=== PATIENT | male | born 1960 | race American Indian/Alaskan Native ===

== ENCOUNTER 2020-10-14 14:25 | Emergency (ER) | payer SELFPAY ==
--- NOTE | 2020-10-14 17:12 | Emergency Department Report ---
ED General Adult HPI - General Chief complaint: Back Pain/Injury Stated complaint: BACK PAIN Time Seen by Provider: 10/14/20 17:06 Source: patient Mode of arrival: Ambulatory Limitations: No Limitations - History of Present Illness Initial comments: 60 y/o male pt w/ hx of lumbar disc herniation presents to ED w/ complaints of nontraumatic nonradiating lower back pain starting 4 days ago. Patient cannot recall any precipitating activity or injury prior to the onset of his pain. Patient states he was diagnosed with a lumbar disc herniation by his iropractor several years ago. He has been wearing a back brace and taking Motrin for pain with limited relief. Pain is worse with standing and movement. Patient does not take steroids. No illicit drug use. Denies fever, chills, neck pain, bladder/bowel incontinence, urinary tension, paresthesias, numbness, weakness, saddle anesthesia. Denies all other complaints at this time. - Related Data Previous Rx's Medication Instructions Recorded Last Taken Type Lidocaine [Lidoderm] 1 each TP BID #20 adh..patch 10/14/20 Unknown Rx Naproxen 500 mg PO BID #20 tablet 10/14/20 Unknown Rx Allergies Allergy/AdvReac Type Severity Reaction Status Date / Time No Known Allergies Allergy Unverified 10/14/20 16:44 ED Review of Systems ROS: Stated complaint: BACK PAIN Other details as noted in HPI Other: CARDIOVASCULAR: Negative for chest pain. PULMONARY: Negative for dyspnea. GASTROINTESTINAL: Negative for abdominal pain. MUSCULOSKELETAL: Positive for back pain. NEUROLOGICAL: Negative for headache. INTEGUMENTARY: Negative for ecchymosis. ED Past Medical Hx - Past Medical History Previous Medical History?: No - Surgical History Past Surgical History?: No - Social History Smoking Status: Current Every Day Smoker Substance Use Type: Alcohol - Medications Home Medications: Home Medications Medication Instructions Recorded Confirmed Last Taken Type Lidocaine [Lidoderm] 1 each TP BID #20 adh..patch 10/14/20 Unknown Rx Naproxen 500 mg PO BID #20 tablet 10/14/20 Unknown Rx ED Physical Exam - General Limitations: No Limitations - Other Other exam information: General: Awake and alert. No acute distress. Head: Atraumatic, normocephalic. Eyes: EOMI. Pupils are equal and round. Normal sclera and conjunctiva. ENT: Oral mucosa is moist. Normal pharyngeal exam. Neck: Supple. No lymphadenopathy. Pulmonary: No respiratory distress. Clear to auscultation bilaterally. Cardiac: Regular rate and rhythm. Pulses are palpable and equal bilaterally. No lower extremity cyanosis or edema. Skin: Warm and dry. No rashes. Abdomen: Soft, non-tender, non-protuberant. No guarding, rigidity, or rebound. Bowel sounds are normal. No organomegaly or masses noted. Back: Patient reports diffuse midline and bilateral paraspinal lumbar back pain without reproducible tenderness. No muscle spasm. No step-offs. No saddle anesthesia. Ambulatory without assistance. Straight leg raise is negative. Extremities: Symmetrical. Full range of motion intact. Neurological: Alert and oriented, appropriately interactive, no focal deficits. Strength and sensation intact throughout. Psych: Cooperative. Appropriate mood and affect. Speech is evenly metered. Thoughts are logically construed. ED Course Vital Signs 10/14/20 16:44 Temperature 97.8 F Pulse Rate 75 Respiratory 18 Rate Blood Pressure 152/94 O2 Sat by Pulse 97 Oximetry ED Medical Decision Making - Medical Decision Making Differential diagnosis including but not limited to: cauda equina syndrome, diskitis, spinal epidural abscess, disc herniation, spinal stenosis, strain/sprain, vertebral fracture Patient presents to the emergency department with complaints of an acute exacerbation of chronic back pain. He has a history of lumbar disc herniation. The patients back pain is not associated with numbness, tingling, or loss of strength. There is no acute urinary incontinence or retention and no bowel incontinence or retention. There is no saddle anesthesia. The patient is afebrile, ambulatory without assistance, and neurovascularly intact. No clinical evidence for acute nerve compression (such as cauda equine syndrome) or infection (such as epidural abscess). It has been explained to the patient that advanced imaging such as CT or MRI is not indicated at this time but should be considered if symptoms recur or worsen. Discharged home with appropriate prescriptions and instructions to follow up with primary care provider. Strict return precautions provided. Emphasized the importance of outpatient follow-up and specific signs/symptoms that should warrant immediate return to the emergency department. Patient expressed understanding and was given the opportunity to ask questions, all of which were satisfactorily answered prior to discharge home. Critical care attestation.: If time is entered above; I have spent that time in minutes in the direct care of this critically ill patient, excluding procedure time. ED Disposition Clinical Impression: Acute exacerbation of chronic low back pain Disposition: DC-01 TO HOME OR SELFCARE Is pt being admited?: No Does the pt Need Aspirin: No Condition: Stable Instructions: Acute Back Pain, Adult Additional Instructions: Take Tylenol every 4 hours as needed for pain. Take Naproxen twice daily with food as needed for pain. Apply Lidoderm patches to affected areas as needed for pain. Apply heat to affected areas as needed for pain. Follow up with primary care provider and/or chiropractor and/or [facility] this week. Call tomorrow to schedule an appointment. See referral information below. Return to the emergency department immediately for new or worsening symptoms. Prescriptions: Lidocaine [Lidoderm] 1 each TP BID #20 adh..patch Naproxen 500 mg PO BID #20 tablet Referrals: EDWIGE RALPH MD [Staff Physician] - 3-5 Days [facility] [Outside] - 3-5 Days [facility] [Outside] - 3-5 Days [facility] [Outside] - 3-5 Days [facility] [Provider Group] - 3-5 Days Forms: Work/School Release Form(ED) Time of Disposition: 17:13
== END 2020-10-14 19:03 | disposition home or self-care (01) ==
LOC: ED 14:25
CPT/HCPCS: 99282

== ENCOUNTER 2022-01-17 10:34 | Emergency (ER) | payer SELFPAY ==
[2022-01-17 12:05] VITALS: BP 184/94
--- NOTE | 2022-01-17 12:11 | Emergency Department Report ---
Chief Complaint: Extremity Injury, Upper Stated Complaint: LFT SHOULDER PAIN - HPI History of Present Illness: 61 Y male with left shoulder pain , woke up to yesterday with no chest pain or SOB. patient denies any radiation from chest - ROS Review of Systems: left shoulder pain - Exam Vital Signs: Vital Signs 01/17/22 12:03 Temperature 98.5 F Pulse Rate 81 Respiratory 18 Rate Blood Pressure 184/94 [Left] O2 Sat by Pulse 99 Oximetry MSE screening note: Focused history and physical exam performed. Due to findings the following was ordered: medical screening done, orders placed. to be seen once room assignment is done. ED Disposition for MSE Condition: Stable
--- NOTE | 2022-01-17 12:48 | XRay Report ---
LEFT SHOULDER 3 VIEWS INDICATION: pain. COMPARISON: None. IMPRESSION: No acute osseous or soft tissue abnormality. Soft tissue calcifications overlying the course of the infraspinatus tendon likely representing chronic calcific tendinitis. Mild osteoarthri tic changes are present at the glenohumeral joint. Signer Name: Tanvir Prescott Jr, MD Signed: 01/17/2022 12:44 PM Workstation Name: [id number]
--- NOTE | 2022-01-17 13:07 | Emergency Department Report ---
ED General Adult HPI - General Chief complaint: Extremity Injury, Upper Stated complaint: LFT SHOULDER PAIN Time Seen by Provider: 01/17/22 12:48 Source: patient Mode of arrival: Ambulatory Limitations: No Limitations - History of Present Illness Initial comments: 61 Y male reports to the ER with left shoulder pain , woke up to yesterday with no chest pain or SOB. patient denies any radiation from chest. No other acute signs or symptoms noted. Patient does report heavy lifting and pushing and pulling at work. - Related Data Previous Rx's Medication Instructions Recorded Last Taken Type Lidocaine [Lidoderm] 1 each TP BID #20 adh..patch 10/14/20 Unknown Rx Naproxen 500 mg PO BID #20 tablet 10/14/20 Unknown Rx Ibuprofen [Motrin] 600 mg PO Q8H PRN 6 Days #18 tablet 01/17/22 Unknown Rx methOCARBAMOL [Robaxin TAB] 500 mg PO Q8HR PRN 5 Days #15 tab 01/17/22 Unknown Rx Allergies Allergy/AdvReac Type Severity Reaction Status Date / Time No Known Allergies Allergy Unverified 01/17/22 12:05 ED Review of Systems ROS: Stated complaint: LFT SHOULDER PAIN Other details as noted in HPI Comment: All other systems reviewed and negative Musculoskeletal: other (Left shoulder pain) ED Past Medical Hx - Past Medical History Previous Medical History?: No - Surgical History Past Surgical History?: No - Social History Smoking Status: Current Every Day Smoker Substance Use Type: Alcohol - Medications Home Medications: Home Medications Medication Instructions Recorded Confirmed Last Taken Type Lidocaine [Lidoderm] 1 each TP BID #20 adh..patch 10/14/20 Unknown Rx Naproxen 500 mg PO BID #20 tablet 10/14/20 Unknown Rx Ibuprofen [Motrin] 600 mg PO Q8H PRN 6 Days #18 tablet 01/17/22 Unknown Rx methOCARBAMOL [Robaxin TAB] 500 mg PO Q8HR PRN 5 Days #15 tab 01/17/22 Unknown Rx ED Physical Exam - General Limitations: No Limitations General appearance: alert, in no apparent distress - Head Head exam: Present: atraumatic, normocephalic - Eye Eye exam: Present: normal appearance - ENT ENT exam: Present: mucous membranes moist - Neck Neck exam: Present: normal inspection - Respiratory Respiratory exam: Present: normal lung sounds bilaterally. Absent: respiratory distress - Cardiovascular Cardiovascular Exam: Present: regular rate, normal rhythm. Absent: systolic murmur, diastolic murmur, rubs, gallop - GI/Abdominal GI/Abdominal exam: Present: soft, normal bowel sounds - Rectal Rectal exam: Present: deferred - Extremities Exam Extremities exam: Present: normal inspection - Expanded Upper Extremity Exam Left Shoulder Exam: Present: full ROM, tenderness. Absent: swelling, deformity - Back Exam Back exam: Present: normal inspection - Neurological Exam Neurological exam: Present: alert, oriented X3 - Psychiatric Psychiatric exam: Present: normal affect, normal mood - Skin Skin exam: Present: warm, dry, intact, normal color. Absent: rash ED Course Vital Signs 01/17/22 12:03 Temperature 98.5 F Pulse Rate 81 Respiratory 18 Rate Blood Pressure 184/94 [Left] O2 Sat by Pulse 99 Oximetry ED Medical Decision Making - Radiology Data [facility] [address] [place] [address] XRay Report Signed Patient: GABBY THOMPSON MR#: [id number] 62 : 1960 Acct:[id number] Age/Sex: 61 / M ADM Date: 01/17/22 Loc: ED Attending Dr: Ordering Physician: RAMY MOFFETT NP Date of Service: 01/17/22 Procedure(s): XR shoulder 2+V LT Accession Number(s): [id number] cc: RAMY MOFFETT NP Fluoro Time In Minutes: LEFT SHOULDER 3 VIEWS INDICATION: pain. COMPARISON: None. IMPRESSION: No acute osseous or soft tissue abnormality. Soft tissue calcifications overlying the course of the infraspinatus tendon likely representing chronic calcific tendinitis. Mild osteoarthritic changes are present at the glenohumeral joint. Signer Name: Tanvir Prescott Jr, MD Signed: 01/17/2022 12:44 PM Workstation Name: [id number] Transcribed By: TTR Dictated By: TANVIR PRESCOTT JR, MD Electronically Authenticated By: TANVIR PRESCOTT JR, MD Signed Date/Time: 01/17/22 1244 DD/ 1243 TD/TT: - Medical Decision Making 61 Y male reports to the ER with left shoulder pain , woke up to yesterday with no chest pain or SOB. patient denies any radiation from chest. No other acute signs or symptoms noted. Patient does report heavy lifting and pushing and pulling at work. Left shoulder range of motion intact with tenderness noted. No swelling noted. Patient currently has topical lidocaine patches on. No acute clinical signs or symptoms noted. X-ray with no acute process noted. Patient informed of x-ray results. Patient informed to follow his primary care provider Patient received prescriptions for pain control. Patient agrees with plan of care and verbalized understanding. No further work-up is needed at this time. Patient is stable for discharge home. Patient informed if symptoms were to get worse to report back to the ER. Vital Signs 01/17/22 12:03 Temperature 98.5 F Pulse Rate 81 Respiratory 18 Rate Blood Pressure 184/94 [Left] O2 Sat by Pulse 99 Oximetry Critical care attestation.: If time is entered above; I have spent that time in minutes in the direct care of this critically ill patient, excluding procedure time. ED Disposition Clinical Impression: Left shoulder pain Qualifiers: Chronicity: acute Qualified Code(s): M25.512 - Pain in left shoulder Disposition: 01 HOME / SELF CARE / HOMELESS Is pt being admited?: No Condition: Stable Instructions: Shoulder Pain, Joint Pain Prescriptions: Ibuprofen [Motrin] 600 mg PO Q8H PRN 6 Days #18 tablet PRN Reason: Pain methOCARBAMOL [Robaxin TAB] 500 mg PO Q8HR PRN 5 Days #15 tab PRN Reason: muscle spasm Referrals: EDWIGE RALPH MD [Primary Care Provider] - 3-5 Days Forms: Work/School Release Form(ED)
== END 2022-01-17 14:00 | disposition home or self-care (01) ==
LOC: ED 10:34
DX: M25.512 Pain in left shoulder (principal); F17.200 Nicotine dependence, unspecified, uncomplicated; Z72.89 Other problems related to lifestyle; Z79.899 Other long term (current) drug therapy
CPT/HCPCS: 99283